=== PATIENT | female | born 1935 | race Hispanic/Latino ===

== ENCOUNTER 2019-02-12 06:23 | Day surgery (SDC) | payer MEDICARE ==
[~2019-02-12] VITALS: Ht 152.4 cm; Wt 56.2 kg
[~2019-02-12 06:23] MED LIST: AMLO5TAB9 PO; ATOR40TA71 PO; FERS325 PO; LISI40TA4 PO
[2019-02-12] MEDS ORDERED: SODIUM CHLORIDE 0.9% 1000ML 1,000 ML IV ONE (07:30)
[2019-02-12 07:57] VITALS: BP 155/59
[2019-02-12] MEDS ORDERED: PROPOFOL 10 MG/ML 20ML VIAL IV ONE ×2 (09:28)
[2019-02-12 09:42] VITALS: BP 100/60
[2019-02-12 09:47] VITALS: BP 99/60
[2019-02-12 09:50] VITALS: BP 131/69
[2019-02-12 10:00] VITALS: BP 138/77
[2019-02-12 10:10] VITALS: BP 140/71
== END 2019-02-12 10:14 | disposition home or self-care (01) ==
LOC: ENDO 06:23 → DAH 06:23 → ENDO 10:14
PROVIDERS: ATTEND Internal Medicine
DX: K62.1 Rectal polyp (principal); K63.5 Polyp of colon; K29.80 Duodenitis without bleeding; K29.60 Other gastritis without bleeding; K22.8 Other specified diseases of esophagus; K64.0 First degree hemorrhoids; D50.9 Iron deficiency anemia, unspecified; E78.5 Hyperlipidemia, unspecified; I10 Essential (primary) hypertension; M19.90 Unspecified osteoarthritis, unspecified site; J84.10 Pulmonary fibrosis, unspecified; Z85.51 Personal history of malignant neoplasm of bladder; Z79.899 Other long term (current) drug therapy; Z98.890 Other specified postprocedural states; Z90.710 Acquired absence of both cervix and uterus; Z82.49 Family history of ischemic heart disease and other diseases of the circulatory system; Z83.3 Family history of diabetes mellitus; Z82.3 Family history of stroke
CPT/HCPCS: 43239; 45380; 88305; 93005; A4606; J2704 ×2; J7030